=== PATIENT | female | born 1980 | race Hispanic/Latino ===

== ENCOUNTER 2018-04-08 08:00 | Emergency (ER) | payer BC, SELFPAY ==
--- NOTE | 2018-04-08 08:00 | DT_ITS ---
This patient was seen during an EMR downtime April 07, 2018 - April 14, 2018. This patient may have a combination of paper and electronic documentation or all paper documentation. All documentation is viewable within the e-chart portion of [facility] for each patient visit.
--- NOTE | 2018-04-08 08:25 | CT_ITS ---
STUDY: CT ABDOMEN AND PELVIS WITHOUT CONTRAST REASON FOR EXAM: Female, 37 years old. RLQ PAIN. RADIATION DOSAGE (If Supplied By Facility): CTDIvol = ( 6.04 ) mGy, DLP = ( 540.39 ) mGycm TECHNIQUE: Transaxial images were obtained from the dome of the diaphragm to the symphysis pubis without oral contrast, and without intravenous contrast. Sagittal and coronal images were reconstructed. Individualized dose optimization techniques were used for this CT. COMPARISON: None. FINDINGS: The visualized lung bases are unremarkable. The visualized portions of the heart are within normal limits. Normal liver. Normal gallbladder and extrahepatic biliary system. Normal spleen. Normal pancreas. Normal bilateral adrenal glands. Normal right kidney. Normal left kidney. Normal visualized stomach. Normal small intestine. Normal colon. The appendix is visualized and appears normal. Normal abdominal aorta. Normal inferior vena cava. Normal retroperitoneum. Normal urinary bladder. There is trace free fluid in the pelvis. This can be physiologic. The uterus is normal in appearance. There are physiologic follicles of both ovaries. There is a small umbilical hernia containing fat. Normal osseous structures. CT/Abdomen/Pelvis without Cont IMPRESSION: There is a small umbilical hernia containing fat. There is free fluid in the pelvis. This can be physiologic. The appendix is visualized and is normal. Electronically Signed: Alonzo Hameed MD at 18:00 EDT , Service support ,
[2018-04-10 18:52] LABS: Bacteria 1+ /hpf (None Seen); Color, Urine Yellow (Yellow); Glucose, Dipstick Normal (Normal); Ketone-Dipstick Negative (Negative); Leukocyte Esterase-Dipstick Negative /ul (Negative); Mucous, Urine 0 SEEN /hpf (<or=2+); Nitrite-Dipstick Negative (Negative); Occult Blood-Urine 50 /ul (Negative); Protein-Dipstick Negative (Negative); Red Blood Cells-Urine 0 SEEN /hpf (0-5); Specific Gravity, Urine 1.015 (1.002-1.030); Squamous Epithelial Cells - UA 0-5 SEEN /hpf (5-10); Urine Bilirubin Dipstick Negative (Negative); Urine Clarity Sl Cloudy (Clear); Urine Urobilinogen Normal (Normal); White Blood Cells 0 SEEN /hpf (0-5)
[2018-04-10 18:55] LABS: Internal QC Validated? YES +Cl - CLEAR BKGD; Pregnancy, Urine Negative Negative
== END 2018-04-08 10:25 | disposition home or self-care (01) ==
PROVIDERS: Emergency Provider Emergency Medicine; Family Provider Family Medicine; PCP Family Medicine
DX: N39.0 Urinary tract infection, site not specified (principal)
CPT/HCPCS: 74176; 81001; 81025; 99282

== ENCOUNTER 2018-05-10 13:07 | Emergency (ER) | payer BC, SELFPAY ==
[2018-05-10 13:08] VITALS: BP 105/67; PULSE 99; RESP 16; TEMP 36.6; O2SAT 99; BMI 22.1
--- NOTE | 2018-05-10 13:46 | EKG12_ITS ---
Test Reason : ABD PAIN Blood Pressure : / mmHG Vent. Rate : 090 BPM Atrial Rate : 090 BPM P-R Int : 128 ms QRS Dur : 066 ms QT Int : 340 ms P-R-T Axes : 053 043 056 degrees QTc Int : 415 ms Poor data quality, interpretation may be adversely affected Normal sinus rhythm Normal ECG No previous ECGs available Confirmed by NAMJA MOMIN, BRIDGER ([id number]), video editor TAYO MORATAYA ([id number]) on 05/20/2018 3:09:42 PM Referred By: JOHN Confirmed By:BRIDGER YAO MD
--- NOTE | 2018-05-10 13:47 | CT_ITS ---
STUDY: CT ABDOMEN AND PELVIS WITH CONTRAST REASON FOR EXAM: Female, 37 years old. Epigastric pain with nausea and vomiting. RADIATION DOSAGE (If Supplied By Facility): CTDIvol = ( 8.61 ) mGy, DLP = ( 904.11 ) mGycm TECHNIQUE: Transaxial images were obtained from the dome of the diaphragm to the symphysis pubis without oral contrast. 100mL ml of Isovue 300 contrast was administered. Sagittal and coronal images were reconstructed. Individualized dose optimization techniques were used for this CT. COMPARISON: None. FINDINGS: The visualized lung bases are unremarkable. The visualized portions of the heart are within normal limits. Right hepatic lobe subcentimeter hypodensities are present consistent with small cysts though too small to fully characterize. Normal gallbladder and extrahepatic biliary system. Normal spleen. Normal pancreas. Normal bilateral adrenal glands. There is a region of inferior anterior cortical irregularity and inflammatory stranding concerning for underlying lesion versus focal pyelonephritis as seen on axial series 2 image 48 and sagittal series 602 image 52 measuring approximately 2 cm in diameter. Mild prominent renal pelvis on the right is noted. Normal left kidney. Normal visualized stomach. Normal small intestine. Normal colon. The appendix is visualized and appears normal. Normal abdominal aorta. Normal inferior vena cava. Normal retroperitoneum. Normal urinary bladder. Normal abdominal wall. Normal osseous structures. CT/Abdomen/Pelvis W IV Cont ONLY IMPRESSION: 1. Right inferior renal cortical lesion with surrounding mild inflammatory stranding (series 2 image 48) concerning for underlying renal lesion versus focal pyelonephritis in the appropriate clinical setting. Recommend three-phase renal CT versus MRI imaging for further assessment and characterization. Recommend urology consultation. Otherwise no evidence of acute intra-abdominal process. Electronically Signed: Mk Li DO at 15:52 EDT , Service support ,
[2018-05-10] MEDS: 0.9% Normal Saline 1,000 ML 1000 ML IV (14:25)
[2018-05-10] MEDS: Ondansetron 4 MG/2 ML Vial IV (14:25)
[2018-05-10] MEDS: Morphine 4 MG/ML Syringe IV (14:25)
[2018-05-10 14:35] LABS: Absolute Lymphocyte Count 1.04 X10^3/ul (0.83-4.51); Absolute Neutrophil Count 11.2 X10^3/uL (2.0-7.7); Basophil# 0.01 X10^3/uL; Basophil% 0.1 % (0-1); Eosinophil# 0.02 X10^3/uL; Eosinophils% 0.2 % (0-5); Hematocrit 40.8 % (37-47); Lymphocyte # 1.04 X10^3/ul (4.0); Lymphocyte % 7.8 % (19-41); Mean Corp Hgb Conc 34.3 g/gl (32-36); Mean Corpuscular Hgb 33.5 pg (27.0-32.0); Mean Corpuscular Volume 97.6 fL (81-99); Mean Platelet Vol. 9.8 fl (6.2-12.0); Monocyte% 7.5 % (0-10); Neutrophil # 11.16 X10^3/uL (2.7-7.7); Neutrophil % 84.2 % (47-70); Platelet Count 241 K/mm3 (150-450); RBC Distribution Width CV 12.4 % (11.6-14.6); RBC Distribution Width SD 42.9 fl (35.1-43.9); Red Blood Count 4.18 M/mm3 (4.2-5.4); White Blood Count 13.3 K/mm3 (4.4-11.0)
[2018-05-10 14:36] LABS: POSITIVE COUNT NO; POSITIVE DIFFERENTIAL NO; POSITIVE MORPHOLOGY NO
[2018-05-10 14:47] LABS: ALB/GLOB Ratio 0.8 RATIO (0.9-2.4); AST(SGOT) 14 U/L (15-37); Alanine Aminotransfer ALT/SGPT 25 U/L (13-56); Albumin, Serum 3.5 g/dL (3.2-5.0); Alkaline Phosphatase 99 U/L (45-117); Anion Gap 7 (5-15); BUN 9 mg/dL (7-18); BUN/Creat Ratio 9.1 RATIO (10-20); Calcium,Total 8.6 mg/dL (8.5-10.1); Chloride 103 mmol/L (98-107); Creatinine, Serum 0.98 mg/dL (0.55-1.02); EST Glomerular Filtration Rate 67 mL/min (>60); Est Glom Filt Rate - Afr Amer 81 mL/min (>60); Estimated Creatinine Clearance 64.39 ml/min; Globulin 4.5 g/dL (2.2-4.2); Glucose 78 mg/dL (74-106); Lipase 71 U/L (73-393); Potassium 3.8 mmol/L (3.5-5.1); Sodium Level 137 mmol/L (136-145)
--- NOTE | 2018-05-10 15:00 | US_ITS ---
STUDY: ABDOMINAL ULTRASOUND - RIGHT UPPER QUADRANT REASON FOR VISIT: Female, 37 years old. Right upper quadrant pain. TECHNIQUE: Ultrasound evaluation of the right upper quadrant was performed with real-time and static ro-scale imaging. TECHNICAL QUALITY: Adequate. COMPARISON: None. FINDINGS: Liver: The liver measures 12.5 cm. There is normal echogenicity of the liver. The bile ducts are within normal limits. There is hepatic color flow. The direction of portal flow is hepatopetal. There is no demonstrated mass lesion. Gallbladder: Normal distended gallbladder. The gallbladder wall measures 3 mm. There is a negative sonographic Lee's sign. There is no pericholecystic fluid. There are no gallstones. Common Bile Duct (C.B.D.): The common bile duct measures 3 mm. Pancreas: Normal size of the head, body and tail of the pancreas. There is normal echogenicity of the pancreas. There is no demonstrated pancreatic mass or cyst. Right Kidney: Normal size of the right kidney. The right kidney measures 11.0 x 5.2 x 4.3 cm. Normal renal cortex. The right cortex measures 1.3 cm. There is a superior pole hypoechoic cyst measuring 1.1 x 1.2 x 1.0 cm. There is no right hydronephrosis. US/Gallbladder IMPRESSION: 1. No evidence of acute abdominal process by ultrasound. Electronically Signed: Mk Li DO at 15:43 EDT , Service support ,
[2018-05-10 16:02] LABS: Mucous, Urine 0 SEEN /hpf (<or=2+)
[2018-05-10 16:14] LABS: Color, Urine Yellow (Yellow); Glucose, Dipstick Normal (Normal); Ketone-Dipstick 15 mg/dl (Negative); Leukocyte Esterase-Dipstick 500 /ul (Negative); Nitrite-Dipstick Positive (Negative); Occult Blood-Urine 150 /ul (Negative); Protein-Dipstick 30 mg/dl (Negative); Urine Bilirubin Dipstick Negative (Negative); Urine Clarity Cloudy (Clear); Urine Urobilinogen Normal (Normal)
--- NOTE | 2018-05-10 16:14 | ED.VISSUMM ---
- ER Visit Summary Date of Service: 05/10/18 Chief Complaint: [Right upper abdominal pain] History of Present Illness: The patient is a 37 F [who presents to the emergency department with 3 weeks of abdominal discomfort. She was seen in the emergency department with right lower quadrant abdominal pain had a negative workup here. She had a CAT scan that was normal. She was discharged home she followed up with [employer] who did a pelvic ultrasound that was normal. Her states that they told her she had a small infection and gave her antibiotic but they are not sure what. She took that but continues to have dysuria and now worsening right upper quadrant pain and right side pain. No fevers but occasional chills she had nausea and one episode of vomiting yesterday. There is a language barrier however the interprets and they were offered interpreting services and declined.] Physical Examination: [] WN WD NAD PERRL EOMI MMM NECK supple and nontender, no masses RRR no murmur rub or gallop, no peripheral edema, symmetric radial pulses CTAB no respiratory distress ABDOMEN is soft with right upper quadrant and epigastric tenderness, normal bowel sounds, no distension, no rebound or guarding CVA tenderness on the right SKIN is warm and dry no rashes Alert and Oriented x3, CN II-XII in tact, no motor or sensory deficits, gait normal No lymphadenopathy Test Results: [] Emergency Department Course and Treatment: [Screening labs show leukocytosis at 13.3. CT shows renal lesion concerning for focal pyelonephritis. They did recommend follow-up renal scan CT or MRI. Patient was given IV ceftriaxone. At this time she is feeling improved she will be discharged with Zofran Percocet and 2 weeks of Keflex. I did encourage her to return to the emergency department with failure to improve within 24 hours or any worsening symptoms. I did discuss with nursing staff to use interpreting services for discharge. She will follow-up with urology.] Treatment Plan: [] Disposition: [Discharge] Impression: [1. Pyelonephritis] This note was generated with Rayspan dictation software. It may contain incorrect words, spelling, and punctuation that were not noted in review of the chart prior to signing ED Disposition - Plan for ED Patient: Chief Complaint: Abd Pain Referrals: Daryl Oviedo MD [Primary Care Provider] -
--- NOTE | 2018-05-10 16:18 | ED.DCSUM_ITS ---
- ER Visit Summary Date of Service: 05/10/18 Chief Complaint: [Right upper abdominal pain] History of Present Illness: The patient is a 37 F [who presents to the emergency department with 3 weeks of abdominal discomfort. She was seen in the emergency department with right lower quadrant abdominal pain had a negative workup here. She had a CAT scan that was normal. She was discharged home she followed up with [employer] who did a pelvic ultrasound that was normal. Her states that they told her she had a small infection and gave her antibiotic but they are not sure what. She took that but continues to have dysuria and now worsening right upper quadrant pain and right side pain. No fevers but occasional chills she had nausea and one episode of vomiting yesterday. There is a language barrier however the interprets and they were offered interpreting services and declined.] Physical Examination: [] WN WD NAD PERRL EOMI MMM NECK supple and nontender, no masses RRR no murmur rub or gallop, no peripheral edema, symmetric radial pulses CTAB no respiratory distress ABDOMEN is soft with right upper quadrant and epigastric tenderness, normal bowel sounds, no distension, no rebound or guarding CVA tenderness on the right SKIN is warm and dry no rashes Alert and Oriented x3, CN II-XII in tact, no motor or sensory deficits, gait normal No lymphadenopathy Test Results: [] Emergency Department Course and Treatment: [Screening labs show leukocytosis at 13.3. CT shows renal lesion concerning for focal pyelonephritis. They did recommend follow-up renal scan CT or MRI. Patient was given IV ceftriaxone. At this time she is feeling improved she will be discharged with Zofran Percocet and 2 weeks of Keflex. I did encourage her to return to the emergency department with failure to improve within 24 hours or any worsening symptoms. I did discuss with nursing staff to use interpreting services for discharge. She will follow-up with urology.] Treatment Plan: [] Disposition: [Discharge] Impression: [1. Pyelonephritis] This note was generated with [employer] dictation software. It may contain incorrect words, spelling, and punctuation that were not noted in review of the chart prior to signing ED Disposition - Plan for ED Patient: Chief Complaint: Abd Pain Referrals: Daryl Oviedo MD [Primary Care Provider] -
--- NOTE | 2018-05-10 16:18 | ED.DEP ---
ED Disposition - Plan for ED Patient: Chief Complaint: Abd Pain Instructions: ED Kidney Infec Female Prescriptions: Oxycodone HCl/Acetaminophen [Percocet 5/325] 1 tablet PO Q6H PRN PRN 3 Days #12 tablet PRN Reason: Pain Ondansetron [Zofran Odt] 4 mg PO Q8H PRN PRN #10 tablet PRN Reason: Nausea Cephalexin [Keflex] 500 mg PO Q8 #42 capsule Referrals: Daryl Oviedo MD [Primary Care Provider] - 2 Days Eliana Price MD [STAFF PHYSICIAN] - 5-7 Days Additional Instructions: your have renal lesion that requires follow up with urology after treatment for infection
--- NOTE | 2018-05-10 16:19 | ED.RN ---
rocephin initiated as per jan indicates
[2018-05-10 16:20] LABS: White Blood Cells >100 SEEN /hpf (0-5)
[2018-05-10] MEDS: Ceftriaxone 1 GM/50 ML BAG IV (16:20)
[2018-05-10 16:21] LABS: Bacteria 2+ /hpf (None Seen); Red Blood Cells-Urine 5-10 SEEN /hpf (0-5); Squamous Epithelial Cells - UA 5-10 SEEN /hpf (5-10)
[2018-05-10 16:32] VITALS: BP 109/75; PULSE 93; RESP 15; O2SAT 100
[2018-05-10 16:49] VITALS: BP 115/80; PULSE 91; RESP 16; O2SAT 100
== END 2018-05-10 16:53 | disposition home or self-care (01) ==
PROVIDERS: Emergency Provider Emergency Medicine; Family Provider Family Medicine; PCP Family Medicine
DX: N12 Tubulo-interstitial nephritis, not specified as acute or chronic (principal); N28.9 Disorder of kidney and ureter, unspecified; E66.9 Obesity, unspecified
CPT/HCPCS: 74177; 76705; 80053; 81001; 83690; 84484; 85025; 93005; 96361; 96365; 96375; 99284; Q9967; J2405

== ENCOUNTER → 2019-10-09 11:46 | Outpatient (CLI) | payer BC, SELFPAY ==
--- NOTE | 2019-10-09 11:57 | US_ITS ---
STUDY: SOFT TISSUE NECK ULTRASOUND REASON FOR EXAM: Female, 39 years old. Palpable lump TECHNIQUE: Sonographic evaluation of the posterior left neck at the site of a palpable lump COMPARISON: None. FINDINGS: There is a 1.4 x 1.5 x 0.6 cm subcutaneous nodule with the sonographic characteristics of a lymph node. No hyperemia or fluid collection noted. US/Head/Neck Soft Tissue IMPRESSION: Subcutaneous lymph node corresponds to the palpable abnormality Electronically Signed: Raymundo Fry MD at 9:13 EST , Service support ,
== END ==
PROVIDERS: Family Provider Family Medicine; PCP Family Medicine
DX: R22.1 Localized swelling, mass and lump, neck (principal)
CPT/HCPCS: 76536

== ENCOUNTER 2020-07-06 11:13 | Emergency (ER) | payer BC, SELFPAY ==
[2020-07-06 11:15] VITALS: BP 149/113; PULSE 78; RESP 18; TEMP 36.3; O2SAT 99; BMI 26.3
--- NOTE | 2020-07-06 11:29 | EKG12_ITS ---
Test Reason : CP Blood Pressure : / mmHG Vent. Rate : 083 BPM Atrial Rate : 083 BPM P-R Int : 122 ms QRS Dur : 066 ms QT Int : 364 ms P-R-T Axes : 047 013 045 degrees QTc Int : 427 ms Normal sinus rhythm Normal ECG Confirmed by TAMIKA MOMIN, BRADLEY ([id number]), publishing editor KIMBERLY MURPHY ([id number]) on 07/12/2020 7:56:04 AM Referred By: AL Confirmed By:KAVIN LUNDBERG MD
--- NOTE | 2020-07-06 11:29 | RAD_ITS ---
STUDY: X-RAY CHEST REASON FOR EXAM: Female, 39 years old. CHEST PAIN, LETHARGY, LIGHT HEADEDNESS, NAUSEA SINCE LAST NIGHT TECHNIQUE: Single AP portable view of the chest. COMPARISON: None. FINDINGS: The lungs are clear and expanded. There is no demonstrated pleural abnormality. Normal size heart. Normal mediastinum and prosper. Normal visualized pulmonary arteries. Normal visualized aortic arch and descending thoracic aorta. Normal visualized thoracic spine. Normal visualized ribs, clavicles, and shoulders. There is no demonstrated abnormality of the visualized soft tissue structures of the upper abdomen. RAD/Chest 1 View (Portable) IMPRESSION: Normal x-ray examination of the chest. Electronically Signed: Carter Betancourt MD at 12:29 EDT Tel , Service support ,
--- NOTE | 2020-07-06 11:30 | ED.VISSUMM ---
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 She reports that she has chest pain that began 2 days ago. It is a continuous waxing and waning sharp pain that is 4-10 currently an 8 out of 10 at worst. Is worsened with walking. There is no change with breathing or movement of her arms or torso. Is relieved by rest. She reports she has felt nauseated. She denies any vomiting, shortness of breath, or diaphoresis. There is no radiation of the pain. Reports that she does feel lightheaded and fatigued. Patient has tobacco use and family history as her only risk factors for coronary artery disease. Physical Examination: Vitals: Stable. Afebrile. General: Well-nourished and well-developed. Head: Normocephalic atraumatic. Neck: Supple, no lymphadenopathy. No JVD. Nontender. Cardiovascular: Regular rate and rhythm. No murmurs. Respiratory: No respiratory distress. Clear to auscultation bilaterally. Mild tenderness palpation of the costochondral margin bilaterally that does reproduce her pain. Abdominal: Soft, nontender, nondistended, normal bowel sounds. No guarding, rebound, or peritoneal signs. Back: Nontender. Extremities: Nontender, no edema. Skin: Normal color, no rash. Neurologic: Alert and oriented ?3. Cranial nerves II through XII are intact. Normal strength and sensation. Psych: Normal affect. Test Results: EKG is sinus at 83 with no acute changes. There is no old EKG for comparison. Troponin is negative despite 2 days of constant pain. test is negative. UA is normal. Chem-7 shows a chloride of 109. CBC shows a white count of 14.1, segmented for 76, lymphocytes 16. Clinical Impression(s) from Imaging Studies Chest X-Ray 07/06/20 11:29 IMPRESSION: Normal x-ray examination of the chest. Electronically Signed: Carter Betancourt MD at 12:29 EDT Tel , Service support , Emergency Department Course and Treatment: Patient had an IV placed. She was given a liter of normal saline and a dose of Zofran and Toradol IV. She is resting more comfortably. Treatment Plan: At this time I do not have an explanation for the patient's pain. She will be discharged with Zofran. Instructed to follow-up with her primary care physician 1 to 2 days if not improving. Return to the emergency department for any worsening symptoms. Disposition: To home in improved and stable condition. Impression: 1. Chest pain, uncertain cause. 2. Nausea. 3. Leukocytosis. This note was generated with [employer] dictation software. It may contain incorrect words, spelling, and punctuation that were not noted in review of the chart prior to signing ED Disposition - Plan for ED Patient: Instructions: ED Chest Pain Atypical Unkn Cause Prescriptions: Ondansetron [Zofran Odt] 4 mg PO Q8H PRN PRN #10 tablet PRN Reason: Nausea Referrals: Daryl Oviedo MD [Primary Care Provider] - 1-2 Days if not improving
[2020-07-06] MEDS: 0.9% Normal Saline 1,000 ML 1000 ML IV (11:49)
[2020-07-06] MEDS: Ketorolac 15 MG/ML Vial IV (11:49)
[2020-07-06 11:50] LABS: Absolute Lymphocyte Count 2.27 X10^3/uL (0.83-4.51); Absolute Neutrophil Count 10.8 X10^3/uL (2.0-7.7); Basophil# 0.02 X10^3/uL; Basophil% 0.1 % (0-1); Eosinophil# 0.17 X10^3/uL; Eosinophils% 1.2 % (0-5); Hemoglobin 13.5 g/dL (12.0-15.0); Lymphocyte # 2.27 X10^3/ul (4.0); Lymphocyte % 16.1 % (19-41); Mean Corp Hgb Conc 32.1 g/dL (32-36); Mean Corpuscular Hgb 31.9 pg (27.0-32.0); Mean Corpuscular Volume 99.3 fL (81-99); Mean Platelet Vol. 10.2 fl (6.2-12.0); Monocyte% 5.7 % (0-10); NRBC Flagged by Analyzer 0 % (0-5); Neutrophil # 10.78 X10^3/uL (2.7-7.7); Neutrophil % 76.4 % (47-70); Platelet Count 328 K/mm3 (150-450); RBC Distribution Width CV 13.9 % (11.6-14.6); Red Blood Count 4.23 M/mm3 (4.2-5.4); White Blood Count 14.1 K/mm3 (4.4-11.0)
[2020-07-06] MEDS: Ondansetron 4 MG/2 ML Vial IV (11:54)
[2020-07-06 12:03] LABS: Internal QC Validated? YES +Cl - CLEAR BKGD; Pregnancy, Serum, hCG Quali. NEGATIVE Negative
[2020-07-06 12:06] LABS: Anion Gap 2 (5-15); BUN 11 mg/dL (7-18); BUN/Creat Ratio 14.6 RATIO (10-20); Calcium,Total 8.6 mg/dL (8.5-10.1); Chloride 109 mmol/L (98-107); Creatinine, Serum 0.75 mg/dL (0.55-1.02); EST Glomerular Filtration Rate 90 mL/min (>60); Est Glom Filt Rate - Afr Amer 109 mL/min (>60); Estimated Creatinine Clearance 78.86 ml/min; Glucose 84 mg/dL (74-106); Potassium 4.2 mmol/L (3.5-5.1); Sodium Level 139 mmol/L (136-145)
[2020-07-06 12:52] LABS: Bacteria 0 SEEN /hpf (None Seen); Mucous, Urine 0 SEEN /hpf (<or=2+); Red Blood Cells-Urine 0 SEEN /hpf (0-5); White Blood Cells 0 SEEN /hpf (0-5)
[2020-07-06 12:53] VITALS: BP 133/90; PULSE 73; RESP 18
[2020-07-06 13:05] LABS: Color, Urine Yellow (Yellow); Glucose, Dipstick Normal (Normal); Ketone-Dipstick Negative (Negative); Leukocyte Esterase-Dipstick Negative /ul (Negative); Nitrite-Dipstick Negative (Negative); Occult Blood-Urine 10 /ul (Negative); Protein-Dipstick Negative (Negative); Specific Gravity, Urine 1.005 (1.002-1.030); Urine Bilirubin Dipstick Negative (Negative); Urine Clarity Clear (Clear); Urine Urobilinogen Normal (Normal)
[2020-07-06 13:11] LABS: Squamous Epithelial Cells - UA 0-5 SEEN /hpf (5-10)
[2020-07-06 13:31] VITALS: BP 105/87; PULSE 76; RESP 18
== END 2020-07-06 13:32 | disposition home or self-care (01) ==
LOC: ED 12:37
PROVIDERS: Emergency Provider Emergency Medicine; PCP Family Medicine
DX: R07.9 Chest pain, unspecified (principal); R11.0 Nausea; R06.00 Dyspnea, unspecified; D72.829 Elevated white blood cell count, unspecified; R53.83 Other fatigue; F32.9 Major depressive disorder, single episode, unspecified; F17.210 Nicotine dependence, cigarettes, uncomplicated; Z79.899 Other long term (current) drug therapy
CPT/HCPCS: 71045; 80048; 81001; 84484; 84703; 85025; 93005; 96361; 96374; 96375; 99285; J7030; A4216; J2405

== ENCOUNTER 2020-12-12 13:19 | Emergency (ER) | payer BC, SELFPAY ==
[2020-11-11 12:28] VITALS: BMI 26.3
[2020-12-12 13:20] VITALS: BP 107/89; PULSE 102; RESP 22; TEMP 36.3; O2SAT 99; BMI 25.6
--- NOTE | 2020-12-12 13:27 | EKG12_ITS ---
Test Reason : CP Blood Pressure : / mmHG Vent. Rate : 087 BPM Atrial Rate : 087 BPM P-R Int : 120 ms QRS Dur : 068 ms QT Int : 354 ms P-R-T Axes : 039 013 041 degrees QTc Int : 425 ms Poor data quality, interpretation may be adversely affected Normal sinus rhythm Normal ECG Confirmed by CAN MOMIN, DARBY ([id number]), rewrite editor TAYO MORATAYA ([id number]) on 12/23/2020 11:49:02 AM Referred By: TONI Confirmed By:DARBY NORTH MD
--- NOTE | 2020-12-12 13:36 | EKG12_ITS ---
Test Reason : CP Blood Pressure : / mmHG Vent. Rate : 084 BPM Atrial Rate : 084 BPM P-R Int : 122 ms QRS Dur : 064 ms QT Int : 356 ms P-R-T Axes : 041 005 035 degrees QTc Int : 420 ms Normal sinus rhythm Normal ECG Confirmed by CAN MOMIN, DARBY ([id number]), news video editor KIMBERLY MURPHY ([id number]) on 12/15/2020 9:27:22 AM Referred By: TONI Confirmed By:DARBY NORTH MD
--- NOTE | 2020-12-12 13:36 | CT_ITS ---
STUDY: CT BRAIN WITHOUT CONTRAST REASON FOR EXAM: Female, 40 years old. SYNCOPE, CHEST PAIN, HIT HEAD, VOMITING RADIATION DOSAGE (If Supplied By Facility): CTDIvol = ( 44.99 ) mGy, DLP = ( 728.62 ) mGycm TECHNIQUE: Transaxial CT imaging of the brain was performed without administration of intravenous contrast material. Individualized dose optimization techniques were used for this CT. COMPARISON: No relevant priors. FINDINGS: Normal soft tissue structures. Normal calvarium. Normal size ventricles and extra-axial spaces for the patient''s age. Normal white matter tracts of the cerebral hemispheres. Normal basal ganglia and thalami. Normal brainstem. Normal cerebellum. There is no intracranial hemorrhage. There are no findings of an acute ischemic infarction. Normal visualized paranasal sinuses. CT/Brain/Head without Contrast IMPRESSION: Normal unenhanced CT scan of the brain. Electronically Signed: Chi Cedeño MD at 14:46 EST , Service support ,
[2020-12-12 13:47] LABS: Absolute Lymphocyte Count 1.87 X10^3/uL (0.83-4.51); Absolute Neutrophil Count 8.5 X10^3/uL (2.0-7.7); Basophil# 0.03 X10^3/uL; Basophil% 0.3 % (0-1); Eosinophil# 0.13 X10^3/uL; Eosinophils% 1.2 % (0-5); Hematocrit 42.4 % (37-47); Hemoglobin 14.3 g/dL (12.0-15.0); Lymphocyte # 1.87 X10^3/ul (4.0); Lymphocyte % 16.8 % (19-41); Mean Corp Hgb Conc 33.7 g/dL (32-36); Mean Corpuscular Hgb 32.6 pg (27.0-32.0); Mean Corpuscular Volume 96.6 fL (81-99); Mean Platelet Vol. 10.2 fl (6.2-12.0); Monocyte# 0.57 X10^3/uL; Monocyte% 5.1 % (0-10); NRBC Flagged by Analyzer 0 % (0-5); Neutrophil # 8.46 X10^3/uL (2.7-7.7); Neutrophil % 76.2 % (47-70); Platelet Count 264 K/mm3 (150-450); RBC Distribution Width CV 14.1 % (11.6-14.6); RBC Distribution Width SD 50.8 fl (35.1-43.9); Red Blood Count 4.39 M/mm3 (4.2-5.4); White Blood Count 11.1 K/mm3 (4.4-11.0)
[2020-12-12] MEDS: 0.9% Normal Saline 1,000 ML 1000 ML IV (13:47)
[2020-12-12] MEDS: Ondansetron 4 MG/2 ML Vial IV (13:47)
[2020-12-12 13:49] VITALS: BP 111/79; PULSE 76; RESP 25; O2SAT 100
[2020-12-12 13:55] LABS: Internal QC Validated? YES +Cl - CLEAR BKGD; Pregnancy, Serum, hCG Quali. NEGATIVE Negative
--- NOTE | 2020-12-12 13:58 | ED.DCSUM_ITS ---
History of Present Illness Informant: Patient, Spouse/S.O., EMS Narrative: Patient presenting for evaluation secondary to a syncopal episode. Patient was at work, she was doing minimal exertion. Patient suffered a sudden syncopal episode. She denies that there was significant prodrome although she reports that currently she has chest pain as well as a headache. Headache potentially could be secondary to the patient falling and hit her head. Patient denies any history of heart disease. She denies any DVT or PE risk factors. Patient is on sertraline. Patient denies recent illness. No recent nausea or vomiting. <NaomiDileep - Last Filed: 12/12/20 14:55> <Alexus Lopez - Last Filed: 12/12/20 16:38> Chief Complaint: Syncope Past Medical History Smoking Status: Current every day smoker Alcohol: None Drugs: None <Dileep Salgado - Last Filed: 12/12/20 14:55> <Alexus Lopez - Last Filed: 12/12/20 16:38> - Allergies and Home Meds Allergies/Adverse Reactions: Allergies No Known Allergies Allergy (Verified 12/12/20 13:26) Primary Care Physician: Daryl Oviedo MD [Primary Care Provider] - 5-7 Days Review of Systems General: Denies: Chills, Fever, Sweats Eyes: Denies: Visual changes - bilaterally, Diplopia ENT: Denies: Rhinorrhea, Sore throat Cardiovascular: Reports: Chest pain, - - Syncope Respiratory: Denies: Dyspnea, Cough, Dyspnea on exertion Gastrointestinal: Denies: Abdominal pain, Nausea, Vomiting, Diarrhea, Melena, Hematochezia Genitourinary: Denies: Dysuria, Hematuria, Frequency Musculoskeletal: Denies: Back pain, Extremity Pain Skin: Denies: Rash, Wounds Neurological: Reports: Headache <Dileep Salgado - Last Filed: 12/12/20 14:55> Physical Exam Vital Signs/Narrative: Vital Signs Temp Pulse Resp BP Pulse Ox 12/12/20 13:49 76 25 H 111/79 100 12/12/20 13:20 97.4 F L 102 H 22 H 107/89 H 99 Inital Vital Signs reviewed: Yes General: Well nourished, Well developed, No Acute Distress Head: Normocephalic, Atraumatic Eyes: Perrl, EOMI ENT: Moist mucous membranes, No rhinorrhea Neck: Supple, Nontender Cardiovascular: Regular rate, Regular rhythm, No murmurs Respiratory: No distress, CTA bilaterally, Chest nontender Abdomen: Soft, Nontender, Nondistended, Normal bowel sounds Back: Nontender, Normal Inspection Extremities: Nontender, No edema Skin: Normal color, No rash, - - Piloerection Neurological: Alert, Oriented x3, Cranial nerves II-XII grossly intact, Normal Strength, Normal Sensation Psychological: Normal affect, Normal Mood <Dileep Salgado - Last Filed: 12/12/20 14:55> Vital Signs/Narrative: Vital Signs Temp Pulse Resp BP Pulse Ox 12/12/20 16:00 80 18 104/68 99 12/12/20 13:49 76 25 H 111/79 100 12/12/20 13:20 97.4 F L 102 H 22 H 107/89 H 99 <JessicaAlexus - Last Filed: 12/12/20 16:38> Diagnostic/Tx/Re-eval Chest X-Ray - ED: 2 View, Read by ED Physician, Normal Clinical Impression(s) from Imaging Studies Brain CT 12/12/20 13:36 IMPRESSION: Normal unenhanced CT scan of the brain. Electronically Signed: Chi Cedeño MD at 14:46 EST , Service support , Chest X-Ray 12/12/20 14:15 IMPRESSION: Normal x-ray examination of the chest. Electronically Signed: Chi Cedeño MD at 14:47 EST , Service support , Laboratory Data 12/12/20 12/12/20 12/12/20 13:00 13:00 13:00 WBC 11.1 H RBC 4.39 Hgb 14.3 Hct 42.4 MCV 96.6 MCH 32.6 H MCHC 33.7 RDW Std Deviation 50.8 H RDW Coeff of Evelin 14.1 Plt Count 264 MPV 10.2 Immature Gran % (Auto) 0.400 Neut % (Auto) 76.2 H Lymph % (Auto) 16.8 L [place] % (Auto) 5.1 Eos % (Auto) 1.2 Baso % (Auto) 0.3 Absolute Neuts (auto) 8.5 H Absolute Lymphs (auto) 1.87 Nucleated RBC % 0 D-Dimer Quant (PE/DVT) 0.32 Sodium 136 Potassium 4.3 Chloride 105 Carbon Dioxide 26.0 Anion Gap 5 BUN 12 Creatinine 0.87 Estim Creat Clear Calc 73.48 Est GFR (MDRD) Af Amer 93 Est GFR (MDRD) Non-Af 76 BUN/Creatinine Ratio 13.8 Glucose 93 Calcium 9.6 Troponin I < 0.015 Serum , Qual 12/12/20 13:00 WBC RBC Hgb Hct MCV MCH MCHC RDW Std Deviation RDW Coeff of Evelin Plt Count MPV Immature Gran % (Auto) Neut % (Auto) Lymph % (Auto) [place] % (Auto) Eos % (Auto) Baso % (Auto) Absolute Neuts (auto) Absolute Lymphs (auto) Nucleated RBC % D-Dimer Quant (PE/DVT) Sodium Potassium Chloride Carbon Dioxide Anion Gap BUN Creatinine Estim Creat Clear Calc Est GFR (MDRD) Af Amer Est GFR (MDRD) Non-Af BUN/Creatinine Ratio Glucose Calcium Troponin I Serum , Qual NEGATIVE - EKG Initial EKG Interpretation: - - Sinus rhythm of [address] segments normal T waves normal MD and QTc intervals no evidence of WPW or Brugada morphology no evidence of acute ischemia or arrhythmia. - Medical Decision Making Patient presented secondary to a syncopal episode. PA and lateral chest x-ray by my personal review as well as radiology is negative. CT imaging of the brain was obtained due to the patient's report of a headache. Patient did come in directly after the syncopal events, sensitivity of a noncontrasted head CT would be adequate to rule out subarachnoid hemorrhage. CBC chemistry troponin unremarkable, D-dimer unremarkable. Patient's syncopal episode seems rather unprovoked, but she really does not have any underlying risk factors and her initial work-up is negative. She was improved on repeat evaluation at 1445. Patient will be kept in the emergency department on telemetry monitoring for a repeat troponin. Patient will be signed out to the oncoming physician will follow up on the repeat troponin and likely discharge the patient upon its results. Patient was informed of the need to follow-up with primary care. She voiced understanding. <Dileep Salgado - Last Filed: 12/12/20 14:55> - Medical Decision Making Patient was signed out to me to check repeat troponin. Repeat troponin is negative. On reevaluation, patient is resting comfortably. She will follow-up with her primary care physician. Advised return to the ED for worsening complaints. <Alexsu Lopez - Last Filed: 12/12/20 16:38> ED Disposition <Dileep Salgado - Last Filed: 12/12/20 14:55> <Alexus Lopez - Last Filed: 12/12/20 16:38> - Plan for ED Patient: Disposition: Home or Assisted Living Diagnosis: Syncope Instructions: ED Fainting, Uncertain Cause Referrals: Daryl Oviedo MD [Primary Care Provider] - 5-7 Days
[2020-12-12 14:01] LABS: Anion Gap 5 (5-15); BUN 12 mg/dL (7-18); BUN/Creat Ratio 13.8 RATIO (10-20); Calcium,Total 9.6 mg/dL (8.5-10.1); Chloride 105 mmol/L (98-107); Creatinine, Serum 0.87 mg/dL (0.55-1.02); EST Glomerular Filtration Rate 76 mL/min (>60); Est Glom Filt Rate - Afr Amer 93 mL/min (>60); Estimated Creatinine Clearance 73.48 ml/min; Glucose 93 mg/dL (74-106); Potassium 4.3 mmol/L (3.5-5.1); Sodium Level 136 mmol/L (136-145)
[2020-12-12 14:11] LABS: D-Dimer Quantitative (DVT/PE) 0.32 FEU/ug/m (0.27-0.49)
--- NOTE | 2020-12-12 14:15 | RAD_ITS ---
STUDY: X-RAY CHEST REASON FOR EXAM: Female, 40 years old. SYNCOPE TECHNIQUE: PA and lateral views of the chest. COMPARISON: Comparison is made with prior study dated 07/06/2020. FINDINGS: EKG electrodes are seen. The lungs are clear and expanded. There is no demonstrated pleural abnormality. Normal size heart. Normal mediastinum and prosper. Normal visualized pulmonary arteries. Normal visualized aortic arch and descending thoracic aorta. Normal visualized thoracic spine. Normal visualized ribs, clavicles, and shoulders. There is no demonstrated abnormality of the visualized soft tissue structures of the upper abdomen. RAD/Chest PA and Lateral IMPRESSION: Normal x-ray examination of the chest. Electronically Signed: Chi Cedeño MD at 14:47 EST , Service support ,
[2020-12-12 16:00] VITALS: BP 104/68; PULSE 80; RESP 18; O2SAT 99
[2020-12-12 16:51] VITALS: BP 104/63; PULSE 72; RESP 16; O2SAT 98
== END 2020-12-12 16:52 | disposition home or self-care (01) ==
PROVIDERS: Emergency Provider Emergency Medicine; PCP Family Medicine
DX: R55 Syncope and collapse (principal); F17.200 Nicotine dependence, unspecified, uncomplicated; R51.9 Headache, unspecified; R07.9 Chest pain, unspecified
CPT/HCPCS: 70450; 71046; 80048; 84484; 84703; 85025; 85379; 93005; 96361; 96374; 99285; J7030; A4216; J2405

== ENCOUNTER 2021-03-03 19:20 | Emergency (ER) | payer BC, SELFPAY ==
[2021-03-03 19:20] VITALS: BP 107/64; PULSE 85; RESP 16; TEMP 36.9; O2SAT 99; BMI 29.2
--- NOTE | 2021-03-03 20:08 | EX.ED.DYSGE1 ---
HPI History of Present Illness Chief Complaint: Anxiety Informant: patient Onset/Context/Timing Onset: Weeks Timing: Intermittent Current Severity: Mild Maximum Severity: Mild Narrative Narrative: 40-year-old female accompanied by her significant other. States the last 2 weeks she has had increased stress. She was taking sertraline she is now out of that has been off of it. Think she needs to go back on it. She has times when she has anxiety attacks where she feels overwhelmed. She gets anxious. She gets short of breath or feels like she is going to pass out. She has had prior negative cardiac work-ups for this before. She denies being suicidal. Prior similar symptoms: Yes Recent Illness/Hospitalization: No PFSH PFSH Home Medications sertraline 100 mg PO DAILY 12/12/20 [History Last Taken Unknown] sertraline 100 mg PO DAILY 30 Days #30 tab 03/03/21 [Rx Last Taken Unknown] Allergy/AdvReac Type Severity Reaction Status Date / Time No Known Allergies Allergy Verified 03/03/21 19:24 Social History Smoking Status: Current every day smoker ROS ROS ED Review of Systems ROS Unobtainable: Denies due to encephalopathy Constitutional Constitutional ED: Denies fever(s) Eyes Eyes: Denies change in vision ENT ENT ED: Denies sore throat Cardiovascular Cardiovascular: Reports palpitations and racing heartbeat Respiratory/Chest Respiratory/Chest: Reports dyspnea Gastrointestinal Gastrointestinal: Reports diarrhea, nausea and vomiting; Denies abdominal pain Genitourinary Genitourinary ED: Denies dysuria Musculoskeletal Musculoskeletal: Denies myalgias Integumentary Denies rash Neurologic Neurologic: Denies headache(s) Psychiatric Psychiatric: Reports anxiety and depression; Denies suicidal ideation Endocrine Endocrinology: Denies polyuria Allergic/Immunologic Allergic/Immunologic ED: Denies urticaria EXAM Physical Exam Narrative Exam Narrative: Middle-aged female no acute distress vital signs stable afebrile. Pulse ox 90% on room air no signs hypoxia. HEENT exam normal. Neck nontender no lymphadenopathy. She does have some muscular tension in the back of her neck. Lungs clear to auscultation bilaterally. Heart regular rhythm no murmur. Abdomen soft nontender normal bowel sounds no peritoneal signs. She is moving all 4 extremities. Calves are nontender without edema or cords. Neurologically she is awake and alert. Emotionally she seems a little anxious but interactive and appropriate. Const Vital Signs: 03/03/21 19:20 Temperature 98.4 F Temperature Source Oral Pulse Rate 85 Respiratory Rate 16 Blood Pressure 107/64 Blood Pressure Mean 78 Pulse Ox 99 Oxygen Delivery Method Room Air HEENT Negative for trauma Eyes PERRL and EOMs intact bilaterally Neck no lymphadenopathy and supple Chest Wall inspection of chest normal Resp normal respiratory effort and clear to auscultation bilaterally Auscultation: Negative for wheezes or diminished lung sounds Cardio regular rate, regular rhythm and no murmurs GI normal to inspection, nondistended, normoactive bowel sounds, non-tender and non-distended Palpation: soft Back/Spine no CVA tenderness Extremity normal to inspection Neuro oriented x3 and CN's II-XII intact bilaterally Sensorium / Orientation: alert Motor Exam: strength 5/5 throughout Psych Mood & Affect: anxious Skin no rashes or lesions noted MDM MDM MDM Narrative Medical decision making narrative: 40-year-old with symptoms consistent with anxiety. She was given a prescription for sertraline. Restarted. Follow-up with her primary care physician. I also told him to investigate other ways to handle stress such as reading, exercise, meditation or other. Discharge Plan Triage Chief Complaint: Anxiety ED Provider: Roberto Maza Dx/Rx/DC Orders Instructions: ED Anxiety Reaction, ED Panic Attack Prescriptions: New sertraline 100 mg tablet 100 mg PO DAILY 30 Days Qty: 30 RF: 0 No Action sertraline 100 MG tablet 100 mg PO DAILY RF: 0 Primary Care Provider: Daryl Oviedo Referrals: Counseling,Center [GROUP OF PHYSICIANS] - As soon as possible Daryl Oviedo MD [Primary Care Provider] - 3-5 Days Disposition Disposition: Home, self care
[2021-03-03] MEDS: LORazepam 1 MG Tablet PO (20:18)
== END 2021-03-03 20:21 | disposition home or self-care (01) ==
PROVIDERS: Emergency Provider Emergency Medicine; PCP Family Medicine
DX: F41.9 Anxiety disorder, unspecified (principal); F17.200 Nicotine dependence, unspecified, uncomplicated
CPT/HCPCS: 99283